=== PATIENT | female | born 1955 | race Caucasian/White ===

== ENCOUNTER 2016-10-05 08:08 | Day surgery (SDC) | payer OTHER ==
[~2016-10-05] VITALS: Ht 165.1 cm; Wt 73.0 kg
[~2016-10-05 08:08] MED LIST: 0.9% Sodium Chloride 1,000 ML IV SCH; Sodium Chloride LOK Flush 10 mL Syringe IV PRN; fentaNYL-PF 50 mCg/mL 2 mL Inj IVPUSH PRN
[2016-10-05 08:26] VITALS: BP 108/59; PULSE 62; RESP 16; O2SAT 99
[2016-10-05 09:15] VITALS: BP 86/48; PULSE 57; O2SAT 98
[2016-10-05 09:25] VITALS: BP 95/55; PULSE 57; O2SAT 98
[2016-10-05 09:44] VITALS: BP 97/55; PULSE 62; O2SAT 98
[2016-10-05 09:45] VITALS: BP 100/69; PULSE 60; O2SAT 100
--- NOTE | 2016-10-05 19:12 | ENDO ---
[address] [address] ENDOSCOPY PROCEDURE PATIENT: SUSANA JACKSON : 1955 MR#: [id number] ADMIT: 10/05/2016 JOB ID: [id number] DATE OF SERVICE: 10/05/2016 PRIMARY CARE PHYSICIAN: Brooke Laurent ND PROCEDURE: Colonoscopy with biopsies. INDICATIONS: A 61-year-old female with right lower quadrant pain that has slowly spontaneously resolved as of this point. She continues to have a tendency towards some loose bowel movements each day. Colonoscopy is therefore pursued. She denies any anorectal pain with bowel movements. She does see occasional red blood per rectum. EQUIPMENT: PCF H 180 AL. SEDATION: 5 mg Versed and 100 mcg fentanyl. COMPLICATIONS: None identified. BOWEL PREPARATION: Fair, adequate exam. PROCEDURE IN DETAIL: After the risks and benefits were explained, written and verbal informed consent was obtained. The patient was brought into the endoscopy suite and placed into the left lateral decubitus position. Sedation was achieved using the above-stated medications with the addition of oxygen via nasal cannula. A digital rectal examination was accomplished. No significant pathology apart from some mild internal hemorrhoids palpated. The scope was introduced into the rectum and advanced under direct visualization to the cecum as identified by the appendiceal orifice and ileocecal valve. The terminal ileum was accessed, the scope then slowly withdrawn to carefully examine the mucosa for any defects or lesions. Retroflexed views were accomplished in the rectum. The colon was decompressed. The scope removed from the patient who tolerated the procedure well. FINDINGS: The terminal ileum appeared visually normal. Multiple photographs were taken. The right colon appeared normal. I took some random biopsies from somewhere in the mid colon considering the tendency towards loose movements. In the sigmoid at around 30 cm from the anal verge, there were a few scattered erosive features. Multiple photographs were taken and biopsy was acquired from this area and submitted separately. Otherwise, there were no inflammatory features throughout the colon. The rectal mucosa appeared well preserved and overall normal. Retroflexed views disclosed a small ulcerated area immediately approaching and crossing the dentate line. From a relaxed scope position, I was able to take a biopsy from this area and submit it for histopathology. Multiple photographs were again taken. ENDOSCOPIC DIAGNOSES: 1. Mild sigmoid patch of inflammation. 2. Hemorrhoids. 3. Dentate line mucosal ulceration-biopsied. RECOMMENDATIONS: 1. Await histopathology. 2. Continue current probiotic protocol. 3. This ulcer in the anorectum was a little unusual. I did not see classic fissure. Depending on what the histology reveals, it may be appropriate to consider a course of nifedipine 0.3% ointment versus Epsom salt baths versus Anusol HC suppository therapy with a followup flexible proctoscopy to ensure healing. 4. If this is all consistent with Crohn's, then perhaps a course of Pentasa suppository may also be useful.
--- NOTE | 2016-10-15 13:26 | PATH ---
SURGICAL PATHOLOGY Attending Physician:Nisa Noonan CASE STATUS: Signed Out PATIENT NAME: SUSANA JACKSON PID: [id number] : 1955 DATE COLLECTED:10/05/2016 16:08 SPECIMEN: 1: Colon, Biopsy 2: Colon, Biopsy 3: Rectum, Biopsy CLINICAL HISTORY: 1. RANDOM COLON BIOPSY 2. SIGMOID COLON BIOPSY 3. RECTUM BIOPSY FINAL DIAGNOSIS: 1. Random Colon Biopsy: Two fragments of colonic mucosa with prominent lymphoid aggregate. Negative for granulomas, active, chronic and microscopic colitis. Negative for dysplasia and malignancy. 2. Sigmoid Colon Biopsy: Colonic mucosa with active inflammation, ischemic type change and erosion. See comment. Negative for dysplasia and malignancy. Separate fragment of endometrial glands and decidualized stroma. See comment. Deeper levels examined. 3. Rectum, Biopsy: One fragment of anorectal mucosa, negative for acute and chronic inflammation. Negative for dysplasia and malignancy. One fragment of ulcer with inflamed granulation tissue. No evidence of viral cytopathic affect identified. Negative for dysplasia and malignancy. Negative for HSV1/2 and CMV antigens by immunohistochemistry. ICD10: K64 K92.2 NOTE: 2. Designated as "Sigmoid colon": Ischemic type changes in the colon can be due to trauma, prolapse, true vascular ischemia and ischemia due to infection (i.e. enterohemorrhagic E.coli, C. difficile, etc.). A separate fragment of endometrial glands and decidualized endometrial stroma is identified (confirmed by immunohistochemistry) Per gross, only one fragment was submitted. The specimen was sent to [facility] to assess for possible carry over/ contaminant. Blood group antigen testing to assess for possible contamination was performed at [facility]. Per [facility] report, both tissue fragments (colon and endometrial tissue) have probable blood group O (H antigen). Both fragments dalia negative with A and B specific antibodies. Overall, these findings are compatible with endometriosis, although the possibility of a contaminant can not be completely excluded. If clinically indicted additional biopsies might be helpful. As part of a routine quality assurance consultant, Dr. Valadez and Dr. Matthews have also reviewed this case and agree with the above interpretation. GROSS DESCRIPTION: Received three formalin-filled containers, each labeled with the patient's name. 1. In a container labeled "random colon", specimen consists of two portions of tissue which aggregate to 0.2 x 0.2 x 0.1 cm. The specimen is entirely submitted in cassette 1A. 2. The specimen is labeled "sigmoid colon" and consists of a 0.2 x 0.2 x 0.2 cm portion of tissue which is entirely submitted in cassette 2A. 3. The specimen is labeled "rectum" and consists of two extremely tiny portions of tissue which aggregate to 0.2 x 0.2 x 0.1 cm. The specimen is entirely submitted in cassette 3A. ([facility] [place]:[id number]) MICRO DESCRIPTION: 2. Designated as "Sigmoid colon": Additional separate fragment of endometrial glands and decidualized endometrial stroma, confirmed by immunohistochemistry. Per immunohistochemistry, the endometrial glands are positive for ER and STEPHY, and are negative for CD10 and CD68. The stromal component is positive for CD10 and shows nonspecific staining for CD68. 3. Designated "Rectum": Immunohistochemical stain was performed to evaluate for HSV 1 and HSV2, and CMV antigens. The control stain shows appropriate reactivity. This test was developed and its performance characteristics determined by [facility]. It has not been cleared or approved by the [place]. [place]. Food and Drug Administration. The FDA has determined that such clearance or approval is not necessary. This test is used for clinical purposes. It should not be regarded as investigational or for research. ICD-9 CODES: CPT CODES: 1: 62481 2: 63002, 29971, 42499, 02546, 29893 3: 23025, 97571, 34170, 35520, 60448 Electronically Signed Out Chas Jeter MD [facility] [address], [place] [address] Technical component performed at [facility], [address], [place], [address]
== END 2016-10-05 23:59 | disposition home or self-care (01) ==
LOC: END 08:08
PROVIDERS: ATTEND Internal Medicine Gastroenterology
DX: K64.0 First degree hemorrhoids (principal); R10.31 Right lower quadrant pain
CPT/HCPCS: 45380; 99153; G0500; J2250; J3010; J7030